=== PATIENT | female | born 1960 | race Caucasian/White ===

== ENCOUNTER 2025-09-20 10:18 | Outpatient (CLI) | payer BC ==
[2025-09-20 11:19] LABS: Hematocrit 39.6 % (34.9-44.5); Hemoglobin 12.9 g/dL (12.0-15.5)
[2025-09-20 11:39] LABS: Anion Gap 12 mmol/L (10-20); BUN (Urea Nitrogen) 15 mg/dL (9.8-20.1); Calc. Creatinine Clearance 0 mL/min (70-130); Calcium 10.4 mg/dL (7.8-10.44); Carbon Dioxide 26 mmol/L (23-31); Chloride 106 mmol/L (98-107); Glucose 93 mg/dL (80-115); Potassium 4.5 mmol/L (3.5-5.1); Sodium 139 mmol/L (136-145)
== END 2025-09-20 10:19 | disposition home or self-care (01) ==
LOC: CSHLAB 10:18
PROVIDERS: ATTEND Otolaryngology Otolaryngic Allergy
DX: Z01.818 Encounter for other preprocedural examination (principal); E21.3 Hyperparathyroidism, unspecified; H61.23 Impacted cerumen, bilateral
CPT/HCPCS: 80048; 85014; 85018; 93005; 93010

== ENCOUNTER 2025-09-26 09:29 | Day surgery (SDC) | payer BC ==
[2025-09-20 10:37] VITALS: BMI 26.4
[~2025-09-26 09:29] MED LIST: Lidocaine 1% w/Epinephrine 1:200K 30 ML VIAL ONE; oFLOXacin 0.3% Opth 5 ML BOT ONE
[2025-09-26] MEDS ORDERED: PROPOFOL 20 ML ONE ×2 (10:11→12:05)
[2025-09-26] MEDS ORDERED: Rocuronium Bromide 10 MG/ML (10ML VIAL) ONE (10:11)
[2025-09-26] MEDS ORDERED: SUGAMMADEX SODIUM 200 MG/2 ML VIAL ONE (10:11)
[2025-09-26] MEDS ORDERED: Lidocaine 1% w/Epinephrine 1:100K 20 ML VIAL ONE (11:44)
[2025-09-26] MEDS ORDERED: HYDROcodone/Acetaminophen 5/325 mg Tablet ONE (14:32)
== END 2025-09-26 15:35 | disposition home or self-care (01) ==
LOC: CSHSDC 09:29
PROVIDERS: ATTEND Otolaryngology Otolaryngic Allergy
PROC: 0GTM0ZZ Resection of Left Superior Parathyroid Gland, Open Approach (ICD-10-PCS; principal; 2025-09-26)
PROC: 0GTP0ZZ Resection of Left Inferior Parathyroid Gland, Open Approach (ICD-10-PCS; principal; 2025-09-26)
DX: E21.0 Primary hyperparathyroidism (principal); H61.23 Impacted cerumen, bilateral; H90.3 Sensorineural hearing loss, bilateral; I10 Essential (primary) hypertension; E78.5 Hyperlipidemia, unspecified; F41.9 Anxiety disorder, unspecified; D64.9 Anemia, unspecified; Z85.828 Personal history of other malignant neoplasm of skin; Z87.891 Personal history of nicotine dependence; Z88.8 Allergy status to other drugs, medicaments and biological substances; Z79.899 Other long term (current) drug therapy
CPT/HCPCS: 36415; 83970; 88305; 88331; C1776; J1100; J2250; J2704